=== PATIENT | male | born 1965 | race Caucasian/White ===

== ENCOUNTER → 2017-04-01 | Outpatient (REF) | payer BC ==
[2013-08-23 08:36] VITALS: BMI 46.8
[~2017-04-01] MED LIST: ALBU2.5V36 INH; AMOX-559 PO; ASPI-1471 PO; ASPI-757 PO; AZIT-1 PO; Amoxicillin/Clavulanate K PO; BENZ200C15 PO; CLIN300C99 PO; CPAP; Docusate Sodium PO; FLU60SYR30 IM ONLY; GABA-549 PO; GLY5 PO; HYDR-3250 PO; HYDR-4309 PO; KET10 PO; LOPE-95 PO; LOPE1LIQ49 PO; LOPE2CAP15 PO; METF-410 PO; METF-420 PO; MONT10TA PO; OXYC-865 PO; PER PO; ROBC PO; SULF-198 PO; TRAM-627 PO
== END ==
PROVIDERS: ATTEND Nurse Practitioner Family
DX: S91.302A Unspecified open wound, left foot, initial encounter (principal); S91.301A Unspecified open wound, right foot, initial encounter; B95.7 Other staphylococcus as the cause of diseases classified elsewhere
CPT/HCPCS: 87070; 87186

== ENCOUNTER → 2017-04-05 | Outpatient (REF) | payer BC ==
[2013-08-23 08:36] VITALS: BMI 46.8
[2017-04-05 14:14] LABS: PLATELET COUNT, AUTOMATED 169 K/uL (150-450)
== END ==
PROVIDERS: ATTEND Family Medicine
DX: K08.9 Disorder of teeth and supporting structures, unspecified (principal)
CPT/HCPCS: 82040; 82247; 82310; 82374; 82435; 82565; 82947; 84075; 84132; 84155; 84295; 84450; 84460; 84520; 85025; 85651; 86140

== ENCOUNTER → 2017-09-29 | Outpatient (CLI) | payer BC ==
[2013-08-23 08:36] VITALS: BMI 46.8
[~2017-09-29] MED LIST changes: -METF-410 PO; +METF-411 PO; +METF-421 PO
== END ==
LOC: RESP 09-23 02:32
PROVIDERS: ATTEND Nurse Practitioner Family
DX: J44.9 Chronic obstructive pulmonary disease, unspecified (principal)
CPT/HCPCS: 94060; 94726; 94729

== ENCOUNTER 2018-01-06 22:06 | Emergency (ER) | payer BC ==
[2013-08-23 08:36] VITALS: Wt 183.7 kg
[~2018-01-06 22:06] MED LIST changes: -HYDR-4309 PO; +HYDR-653 PO; -METF-411 PO; -METF-421 PO; +METF-450 PO; +METF-452 PO
--- NOTE | 2018-01-06 22:11 | ER Report ---
History and Physical Time Seen By MD: 22:11 HPI/ROS CHIEF COMPLAINT: Hematuria HISTORY OF PRESENT ILLNESS: Patient is a 52-year-old male who is a type II diabetic also has a history of osteomyelitis with digital amputation to the toes. He states that at 6 PM this evening he began passing dark red urine that was painful states he does have some mild left-sided flank pain. Denies any nausea or fevers. States the pain is severe while urinating. He denies that he is passing clots but states he has having small amounts of urine frequently. Pat holly denies similar episodes in the past. Patient is not on any anticoagulation other than aspirin. REVIEW OF SYSTEMS: Constitutional: No fever, no chills. Cardiovascular: No chest pain, no palpitations. Respiratory: No cough, no shortness of breath. Gastrointestinal: No abdominal pain, no vomiting. Genitourinary: Gross hematuria Musculoskeletal: No back pain. Skin: No rashes. Neurological: No headache. Allergies: Coded Allergies: No Known Drug Allergies (Unverified , 06/18/16) Home Meds Active Scripts Oxycodone Hcl/Acetaminophen (PERCOCET 5-325 MG TABLET) 1 Each Tablet, 1 EACH PO Q4H for PAIN, #6 TAB 0 Refills Prov:ALLYN BRADFORD MD 01/06/18 Phenazopyridine Hcl (PHENAZOPYRIDINE HCL) 200 Mg Tablet, 200 MG PO TID for 2 Days, #6 TAB 0 Refills Prov:ALLYN BRADFORD MD 01/06/18 Cephalexin 500 Mg Tab (KEFLEX 500 MG TAB) 500 Mg Tablet, 500 MG PO Q6H, #28 TAB 0 Refills TAKE ONE TABLET BY MOUTH EVERY SIX HOURS Prov:ALLYN BRADFORD MD 01/06/18 Metformin Hcl (METFORMIN HCL) 1,000 Mg Tablet, 1 TAB PO BID, #180 TAB 2 Refills Prov:HORACIO GERARDO MD 03/12/17 Gabapentin (GABAPENTIN) 300 Mg Capsule, 2 CAP PO BID, #360 CAPSULE 2 Refills Prov:HORACIO GERARDO MD 03/12/17 Reported Medications Glyburide (GLYBURIDE) 5 Mg Tab, 0.5 TAB PO BID, TAB 01/06/18 Trazodone Hcl (TRAZODONE HCL) 50 Mg Tablet, 100 MG PO QHS 01/06/18 Cpap (CPAP HOME) Inha, HS 10/10/17 Aspirin (ASPIRIN) 325 Mg Tablet, 1 TAB PO QDAY, TAB 09/18/16 Discontinued Reported Medications Loperamide HCl (Imodium A-D) 2 Mg Capsule, 1 CAP PO TID PRN for diarrhea 12/08/16 Discontinued Scripts Montelukast Sodium (SINGULAIR) 10 Mg Tablet, 1 TAB PO QDAY PRN for ALLERGY SYMPTOMS for 30 Days, #30 TAB 6 Refills Prov:HORACIO GERARDO MD 05/12/17 Glyburide (GLYBURIDE) 5 Mg Tab, 1 TAB PO BID, #180 TAB 2 Refills Prov:HORACIO GERARDO MD 03/12/17 Guaifenesin/Codeine (GUAIFENESIN-CODEINE SYRUP) 5 Ml Syrp, 1-2 TSP PO QID PRN f or cough, #4 OZ 0 Refills Prov:RADHA ADDISON MD 12/08/16 Past Medical/Surgical History Past medical history: Sleep apnea, right ankle fracture, NIDDM, occasionally drinks alcohol. Surgical history: multiple toe amputations secondary to NIDDM and Osteomyelitis. Hx Smoking: Yes Smoking Status: Never Smoker, Former Smoker, Light Tobacco Smoker Exposure to Second Hand Smoke?: Yes Hx Substance Use Disorder: Yes Hx Alcohol Use: Yes Constitutional Vital Sign - Last 24 Hours 01/06/18 01/06/18 01/06/18 01/06/18 22:13 22:36 22:51 22:52 Temp 99.1 Pulse 96 90 89 Resp 24 B/P (MAP) 145/84 118/62 (80) Pulse Ox 95 96 94 O2 Delivery Room Air 01/06/18 23:33 Pulse 85 Resp 16 B/P (MAP) 132/82 (99) Pulse Ox 92 O2 Delivery Room Air Physical Exam General Appearance: [The patient is alert, has no immediate need for airway protection and no current signs of toxicity.] [ ] [Eyes:] [Pupils equal and round no injection.] Respiratory: [Chest is non tender, lungs are clear to auscultation.] Cardiac: [regular rate and rhythm] [ ] Gastrointestinal: [Abdomen is soft and non tender, no masses, bowel sounds normal.] [Musculoskeletal:] [Neck:] [Neck is supple and non tender.] [Extremities have full range of motion and are non tender.] [Skin:] [No rashes or lesions.] [ ] [DIFFERENTIAL DIAGNOSIS: After history and physical exam differential diagnosis was considered for] [ ] Medical Decision Making Data Points Result Diagram: 01/06/18222601/06/182226 Laboratory Hematology Test 01/06/18 22:09 01/06/18 22:27 Urine Color Yellow Urine Clarity Cloudy Urine pH 5.0 pH (4.8-9.5) Urine Specific [place] 1.011 Urine Protein 100 mg/dL (NEGATIVE) Urine Glucose (UA) 50 mg/dL (NEGATIVE) Urine Ketones 20 mg/dL (NEGATIVE) Urine Blood Large (NEGATIVE) Urine Nitrite Negative (NEGATIVE) Urine Bilirubin Negative (NEGATIVE) Urine Urobilinogen Negative mg/dL (0.2-1.9) Urine Leukocyte Esterase Large (NEGATIVE) Urine RBC 1861 /HPF (0-2/HPF) Urine WBC 233 /HPF (0-5/HPF) Urine WBC Clumps Mod /HPF Urine Squamous Epithelial Cells None /LPF (</=FEW) Urine Bacteria Few /HPF (NONE-FEW) Urine Mucus Few /HPF (NONE-FEW) Red Blood Count 4.75 M/uL (4.00-5.60) Mean Corpuscular Volume 90.8 fL (80.0-96.0) Mean Corpuscular Hemoglobin 30.8 pg (26.0-33.0) Mean Corpuscular Hemoglobin Concent 33.9 g/dL (32.0-36.0) Red Cell Distribution Width 14.7 % (11.5-14.5) Mean Platelet Volume 8.4 fL (7.2-11.1) Neutrophils (%) (Auto) 89.5 % (39.4-72.5) Lymphocytes (%) (Auto) 5.2 % (17.6-49.6) Monocytes (%) (Auto) 4.7 % (4.1-12.4) Eosinophils (%) (Auto) 0.2 % (0.4-6.7) Basophils (%) (Auto) 0.4 % (0.3-1.4) Nucleated RBC Relative Count (auto) 0.1 /100WBC Neutrophils # (Auto) 9.2 K/uL (2.0-7.4) Lymphocytes # (Auto) 0.5 K/uL (1.3-3.6) Monocytes # (Auto) 0.5 K/uL (0.3-1.0) Eosinophils # (Auto) 0.0 K/uL (0.0-0.5) Basophils # (Auto) 0.0 K/uL (0.0-0.1) Nucleated RBC Absolute Count (auto) 0.01 K/uL Sodium Level 133 mmol/L (137-145) Potassium Level 3.9 mmol/L (3.5-5.0) Chloride Level 97 mmol/L (98-107) Carbon Dioxide Level 27 mmol/L (22-30) Blood Urea Nitrogen 13 mg/dl (9-21) Creatinine 0.90 mg/dl (0.66-1.25) Glomerular Filtration Rate Calc > 60.0 Random Glucose 209 mg/dl (75-110) Calcium Level 9.0 mg/dl (8.4-10.2) Total Bilirubin 1.8 mg/dl (0.2-1.3) Aspartate Amino Transf (AST/SGOT) 20 U/L (0-35) Alanine Aminotransferase (ALT/SGPT) 35 U/L (0-56) Alkaline Phosphatase 75 U/L (0-126) Total Protein 7.3 g/dl (6.3-8.2) Albumin 4.1 g/dl (3.5-5.0) Chemistry Test 01/06/18 22:09 01/06/18 22:27 Urine Color Yellow Urine Clarity Cloudy Urine pH 5.0 pH (4.8-9.5) Urine Specific [place] 1.011 Urine Protein 100 mg/dL (NEGATIVE) Urine Glucose (UA) 50 mg/dL (NEGATIVE) Urine Ketones 20 mg/dL (NEGATIVE) Urine Blood Large (NEGATIVE) Urine Nitrite Negative (NEGATIVE) Urine Bilirubin Negative (NEGATIVE) Urine Urobilinogen Negative mg/dL (0.2-1.9) Urine Leukocyte Esterase Large (NEGATIVE) Urine RBC 1861 /HPF (0-2/HPF) Urine WBC 233 /HPF (0-5/HPF) Urine WBC Clumps Mod /HPF Urine Squamous Epithelial Cells None /LPF (</=FEW) Urine Bacteria Few /HPF (NONE-FEW) Urine Mucus Few /HPF (NONE-FEW) White Blood Count 10.2 k/uL (4.5-11.0) Red Blood Count 4.75 M/uL (4.00-5.60) Hemoglobin 14.6 g/dL (14.0-18.0) Hematocrit 43.1 % (42.0-52.0) Mean Corpuscular Volume 90.8 fL (80.0-96.0) Mean Corpuscular Hemoglobin 30.8 pg (26.0-33.0) Mean Corpuscular Hemoglobin Concent 33.9 g/dL (32.0-36.0) Red Cell Distribution Width 14.7 % (11.5-14.5) Platelet Count 125 K/uL (150-450) Mean Platelet Volume 8.4 fL (7.2-11.1) Neutrophils (%) (Auto) 89.5 % (39.4-72.5) Lymphocytes (%) (Auto) 5.2 % (17.6-49.6) Monocytes (%) (Auto) 4.7 % (4.1-12.4) Eosinophils (%) (Auto) 0.2 % (0.4-6.7) Basophils (%) (Auto) 0.4 % (0.3-1.4) Nucleated RBC Relative Count (auto) 0.1 /100WBC Neutrophils # (Auto) 9.2 K/uL (2.0-7.4) Lymphocytes # (Auto) 0.5 K/uL (1.3-3.6) Monocytes # (Auto) 0.5 K/uL (0.3-1.0) Eosinophils # (Auto) 0.0 K/uL (0.0-0.5) Basophils # (Auto) 0.0 K/uL (0.0-0.1) Nucleated RBC Absolute Count (auto) 0.01 K/uL Glomerular Filtration Rate Calc > 60.0 Calcium Level 9.0 mg/dl (8.4-10.2) Total Bilirubin 1.8 mg/dl (0.2-1.3) Aspartate Amino Transf (AST/SGOT) 20 U/L (0-35) Alanine Aminotransferase (ALT/SGPT) 35 U/L (0-56) Alkaline Phosphatase 75 U/L (0-126) Total Protein 7.3 g/dl (6.3-8.2) Albumin 4.1 g/dl (3.5-5.0) Urinalysis Test 01/06/18 22:09 Urine Color Yellow Urine Clarity Cloudy Urine pH 5.0 pH (4.8-9.5) Urine Specific [place] 1.011 Urine Protein 100 mg/dL (NEGATIVE) Urine Glucose (UA) 50 mg/dL (NEGATIVE) Urine Ketones 20 mg/dL (NEGATIVE) Urine Blood Large (NEGATIVE) Urine Nitrite Negative (NEGATIVE) Urine Bilirubin Negative (NEGATIVE) Urine Urobilinogen Negative mg/dL (0.2-1.9) Urine Leukocyte Esterase Large (NEGATIVE) Urine RBC 1861 /HPF (0-2/HPF) Urine WBC 233 /HPF (0-5/HPF) Urine WBC Clumps Mod /HPF Urine Squamous Epithelial Cells None /LPF (</=FEW) Urine Bacteria Few /HPF (NONE-FEW) Urine Mucus Few /HPF (NONE-FEW) Microbiology Microbiology Date/Time Source Procedure Growth Status 01/06/18 22:09 Clean Catch Midstream Ur Urine Culture - Preliminary Gram Negative Rico Resulted ED Course/Re-evaluation Clinical Indication for ER IV: IV Access ED Course 01/06/2018 10:43:10 pm patient with gross hematuria with pain with urination. After history and physical exam was performed differential diagnosis was form ulated which includes but is not limited to urinary tract infection, pyelonephritis, nephrolithiasis, acute kidney injury. Plan will be to obtain urine for urinalysis and culture. Will check CBC, CMP, noncontrast CT of the abdomen and pelvis. We will give IV pain medication and Pyridium. Re-evaluation 01/06/2018 11:15:12 pm patient reports pain is significantly improved as about a 4 out of 10 in intensity after 100 g of fentanyl and 200 mg of Pyridium. We will give another 50 g of fentanyl Decision to Disposition Date: Jan 06, 2018 Decision to Disposition Time: 23:55 Depart Departure Latest Vital Signs Vital Signs Date Time Temp Pulse Resp B/P (MAP) Pulse Ox O2 Delivery O2 Flow Rate FiO2 01/06/18 23:33 85 16 132/82 (99) 92 Room Air 01/06/18 22:13 99.1 Impression: Primary Impression: Urinary tract infection Condition: Improved Disposition: HOME OR SELF-CARE New Scripts Oxycodone Hcl/Acetaminophen (PERCOCET 5-325 MG TABLET) 1 Each Tablet 1 EACH PO Q4H for PAIN, #6 TAB 0 Refills Prov: ALLYN BRAFDORD MD 01/06/18 Phenazopyridine Hcl (PHENAZOPYRIDINE HCL) 200 Mg Tablet 200 MG PO TID for 2 Days, #6 TAB 0 Refills Prov: ALLYN BRADFORD MD 01/06/18 Cephalexin 500 Mg Tab (KEFLEX 500 MG TAB) 500 Mg Tablet 500 MG PO Q6H, #28 TAB 0 Refills TAKE ONE TABLET BY MOUTH EVERY SIX HOURS Prov: ALLYN RBADFORD MD 01/06/18 Departure Forms: ER Transition Record, Medications Reconciliation, Off Work/School Form, School or Work Release?: Work Number of days to be released: 2 Patient Portal Information Patient Instructions: Urinary Tract Infection in Men (DC) Problem Qualifiers Primary Impression: Urinary tract infection Urinary tract infection type: acute cystitis Hematuria presence: with nenita turia Qualified Codes: N30.01 - Acute cystitis with hematuria ALLYN BRADFORD MD Jan 06, 2018 22:11
[2018-01-06] MEDS ORDERED: GLY5 PO (22:17)
[2018-01-06] MEDS ORDERED: TRAZ50TA34 PO (22:17)
[2018-01-06] MEDS ORDERED: PHENAZOPYRIDINE 200 MG TAB PO ONE (22:25)
[2018-01-06] MEDS ORDERED: fentaNYL CITR 100 MCG/2 ML AMP IVP ONE ×2 (22:25→23:20)
[2018-01-06 22:33] LABS: PLATELET COUNT, AUTOMATED 125 K/uL (150-450)
[2018-01-06] MEDS ORDERED: cefTRIAXone 1 GM VIAL IVP ONE (22:35)
[2018-01-06] MEDS ORDERED: PHEN200T32 PO (23:16)
[2018-01-06] MEDS ORDERED: CEPH500T7 PO (23:16)
[2018-01-06] MEDS ORDERED: OXYC-865 PO (23:20)
--- NOTE | 2018-01-06 23:24 | RADIOLOGY IMAGING REPORT ---
FACILITY: [facility] PATIENT NAME: Clement Cornejo : 1965 MR: [id number] V: [id number] EXAM DATE: ORDERING PHYSICIAN: ALLYN BRADFORD TECHNOLOGIST: Location: [facility] [place] Patient: Clement Cornejo : 1965 Visit/Account:[id number] Date of Sevice: 01/06/2018 EXAMINATION: CT abdomen and pelvis without IV contrast HISTORY: Left flank pain. TECHNIQUE: Axial CT images of the abdomen and pelvis were obtained without IV contrast, with caal l and sagittal 2D reconstructed images. One of the following dose optimization techniques was utilized in the performance of this exam: Autom ated exposure control; adjustment of the mA and/or kV according to the patient's size; or use of an i terative reconstruction technique. Specific details can be referenced in the facility's radiology C T exam operational policy. COMPARISON: None. FINDINGS: Evaluation of the solid and viscus parenchymal organs is limited without the benefit of IV contrast. Kidney/ureters/bladder: Normal size and morphology of both kidneys. No urinary calculi or hydronephro sis. There is mild nonspecific perinephric stranding bilaterally. The urinary bladder is mildly diste nded. There is mild diffuse wall thickening of the urinary bladder. Liver: Negative. Gallbladder and bile ducts: Negative. Spleen: Mild splenomegaly. The spleen measures 18 cm in length. Pancreas: Mild diffuse fatty replacement. Adrenal glands: Negative. Bowel and peritoneum: The small bowel and colon are normal in caliber. Unremarkable appendix. No mickey e fluid or free intraperitoneal air. Lymph node assessment: Negative. Vessels: Normal caliber abdominal aorta. Musculoskeletal: Multilevel degenerative changes throughout the spine. No acute osseous findings. Body wall: Negative. Lung bases: Calcified granulomas in the lung bases. IMPRESSION: 1. Normal size and morphology of both kidneys. No urinary calculi or hydronephrosis. 2. Mild diffuse wall thickening of the urinary bladder. This may be accentuated by the relatively dec ompressed nature of the urinary bladder. Correlate with any clinical and/or laboratory evidence for u rinary infection. 3. No other acute intra-abdominal findings by noncontrast CT imaging. Report Dictated By: Irving Jackson MD at 01/06/2018 11:09 PM Report E-Signed By: Irving Jackson MD at 01/06/2018 11:20 PM [id number]
[2018-01-06] MEDS ORDERED: oxyCODONE/ACETAMIN 5/325MG TH 2 TAB/BOTTLE PO ONE (23:30)
[2018-01-06 23:33] VITALS: BP 132/82
== END 2018-01-06 23:38 | disposition home or self-care (01) ==
LOC: ER 22:45
DX: N30.01 Acute cystitis with hematuria (principal)
CPT/HCPCS: 74176; 81001; 85025; 87077; 87088; 87186; 96374; 96375; 99284; J0696; J3010; 82040; 82247; 82310; 82374; 82435; 82565; 82947; 84075; 84132; 84155; 84295; 84450; 84460; 84520